=== PATIENT | male | born 1970 | race Caucasian/White ===

== ENCOUNTER 2025-03-17 08:56 | Emergency (ER) | payer OTHER ==
[~2025-03-17] VITALS: Ht 172.7 cm; Wt 140.6 kg
[2025-03-17] MEDS ORDERED: PENI500T2 PO (11:23)
[2025-03-17] MEDS ORDERED: ACET-2080 PO (11:23)
[2025-03-17] MEDS ORDERED: IBUP-1554 PO (11:23)
[2025-03-17 11:26] VITALS: BP 186/95; PULSE 78; RESP 20; TEMP 97.905272; O2SAT 95
[2025-03-17] MEDS: ACETAMINOPHEN 500 MG TABLET PO ONE (11:43)
[2025-03-17] MEDS: IBUPROFEN 600 MG TABLET PO ONE (11:43)
== END 2025-03-17 11:49 | disposition home or self-care (01) ==
LOC: EMS 09:05
DX: K05.10 Chronic gingivitis, plaque induced (principal)
CPT/HCPCS: 99283

== ENCOUNTER 2025-05-13 10:51 | Emergency (ER) | payer OTHER ==
[~2025-05-13] VITALS: Ht 172.7 cm; Wt 140.0 kg
[~2025-05-13 10:51] MED LIST: ACET-2080 PO; IBUP-1554 PO; PENI500T2 PO
[2025-05-13 10:52] VITALS: TEMP 98.2
[2025-05-13 11:15] LABS: PLATELET COUNT (AUTO) 199 K/uL (150-450); RED BLOOD CELL COUNT(AUTO) 5.21 MIL/uL (4.50-5.90); RED CELL DISTRIBUTION WIDTH 13.0 % (11.5-14.5); WHITE BLOOD COUNT (AUTO) 5.6 K/uL (4.5-11.0)
[2025-05-13] MEDS: LABETALOL HCL 5 MG/ML 20 ML VIAL IVP ONE (11:19)
[2025-05-13 11:30] LABS: TROPONIN I-HIGH SENSITIVITY 18 ng/L (<76)
[2025-05-13 11:35] LABS: CALCIUM, TOTAL 8.5 mg/dL (8.8-10.5); CREATININE 0.79 mg/dL (0.60-1.30); GLOMERULAR FILTR. RATE CALC > 60 mL/min (>60); GLUCOSE,RANDOM 212 mg/dL (70-110); SODIUM SERUM 137 mmol/L (136-145); UREA NITROGEN, BLOOD 9 mg/dL (7-18)
[2025-05-13] MEDS ORDERED: LISI-894 PO (14:24)
[2025-05-13] MEDS ORDERED: AMLO10TA55 PO (14:24)
[2025-05-13] MEDS: POTASSIUM CHLORIDE 20 MEQ ER TABLET PO ONE (15:16)
[2025-05-13 15:19] VITALS: BP 153/95; PULSE 75; RESP 18; O2SAT 96
== END 2025-05-13 15:23 | disposition home or self-care (01) ==
LOC: EMS 10:51
DX: I10 Essential (primary) hypertension (principal); E11.65 Type 2 diabetes mellitus with hyperglycemia; E87.6 Hypokalemia; Z59.71 Insufficient health insurance coverage
CPT/HCPCS: 99285; 96374; 71045; 80048; 84484; 85025; 36415; 93005; J3490